=== PATIENT | female | born 1995 | race Hispanic/Latino ===

== ENCOUNTER 2018-11-14 08:50 | Emergency (ER) | payer OTHER ==
--- NOTE | 2018-11-14 10:41 | EDPHYS ---
Physician Documentation [facility] Name: Karin Martinez Age: 22 yrs Sex: Female : 1995 Arrival Date: 11/14/2018 Time: 08:55 Bed 24 Private MD: ED Physician Johnny Garcia HPI: 11/14 09:17 This 22 yrs old Female presents to ER via Ambulatory with complaints of Arm kb Pain, Hand Pain. 09:19 The patient or guardian reports pain, swelling. The complaints affect the left wrist kb diffusely. Context: The problem was sustained at work, resulted from using manager floor. Onset: The symptoms/episode began/occurred yesterday. Modifying factors: The symptoms are alleviated by nothing, the symptoms are aggravated by movement. Associated signs and symptoms: The patient has no apparent associated signs or symptoms. The patient has not experienced similar symptoms in the past. The patient has not recently seen a physician. Pt states she was using the big manager floor yesterday and has had pain to wrist since then. States "the machine is hard on your wrists when turning.". 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 - Social history:: Smoking status: Patient/guardian denies using tobacco. - Ebola Screening: : Patient negative for fever greater than or equal to 101.5 degrees Fahrenheit, and additional compatible Ebola Virus Disease symptoms Patient denies exposure to infectious person Patient denies travel to an Ebola-affected area in the 21 days before illness onset. ROS: 09:19 Constitutional: Negative for fever, chills, and weight loss, Cardiovascular: Negative kb for chest pain, palpitations, and edema, Respiratory: Negative for shortness of breath, cough, wheezing, and pleuritic chest pain, Abdomen/GI: Negative for abdominal pain, nausea, vomiting, diarrhea, and constipation, Skin: Negative for injury, rash, and discoloration, Neuro: Negative for headache, weakness, numbness, tingling, and seizure. 09:19 MS/extremity: Positive for injury or acute deformity, pain, swelling, of the left wrist. Exam: 09:19 Constitutional: This is a well developed, well nourished patient who is awake, alert, kb and in no acute distress. Head/Face: Normocephalic, atraumatic. Neck: Trachea midline, no thyromegaly or masses palpated, and no cervical lymphadenopathy. Supple, full range of motion without nuchal rigidity, or vertebral point tenderness. No Meningismus. Chest/axilla: Normal chest wall appearance and motion. Nontender with no deformity. No lesions are appreciated. Cardiovascular: Regular rate and rhythm with a normal S1 and S2. No gallops, murmurs, or rubs. Normal PMI, no JVD. No pulse deficits. Respiratory: Lungs have equal breath sounds bilaterally, clear to auscultation and percussion. No rales, rhonchi or wheezes noted. No increased work of breathing, no retractions or nasal flaring. Abdomen/GI: Soft, non-tender, with normal bowel sounds. No distension or tympany. No guarding or rebound. No evidence of tenderness throughout. Skin: Warm, dry with normal turgor. Normal color with no rashes, no lesions, and no evidence of cellulitis. MS/ Extremity: Pulses equal, no cyanosis. Neurovascular intact. Full, normal range of motion. Neuro: Awake and alert, GCS 15, oriented to person, place, time, and situation. Cranial nerves II-XII grossly intact. Motor strength 5/5 in all extremities. Sensory grossly intact. Cerebellar exam normal. Normal gait. Vital Signs: 09:04 BP 138 / 72; Pulse 82; Resp 14; Temp 97.5(TE); Pulse Ox 99% on R/A; Weight 95.25 kg; ss Height 5 ft. 6 in. (167.64 cm); Pain 6/10; 09:04 Body Mass Index 33.89 (95.25 kg, 167.64 cm) ss MDM: 09:04 Patient medically screened. kb 09:18 Data reviewed: vital signs, nurses notes. Data interpreted: Pulse oximetry: on room air kb is 99 %. Interpretation: normal. 10:38 Counseling: I had a detailed discussion with the patient and/or guardian regarding: the kb historical points, exam findings, and any diagnostic results supporting the discharge/admit diagnosis, radiology results, the need for outpatient follow up, a orthopedic surgeon, to return to the emergency department if symptoms worsen or persist or if there are any questions or concerns that arise at home. 11/14 09:04 Order name: Wrist Left (3 View) XRAY; Complete Time: 11:26 kb 11/14 10:40 Order name: Darell Wrap; Complete Time: 10:41 kb Administered Medications: 09:22 Not Given (Pt has taken ALEVE today already for same pain): Ibuprofen 800 mg PO once ss Disposition: 17:21 Co-signature as Attending Physician, Johnny Garcia MD. Disposition: 11/14/18 10:40 Discharged to Home. Impression: Other specified sprain of left wrist. - Condition is Stable. - Discharge Instructions: Wrist Pain, [id number]. - Prescriptions for Diclofenac Sodium 75 mg Oral Tablet, Delayed Release (E.C.) - take 1 tablet by ORAL route 2 times per day As needed; 30 tablet. - Medication Reconciliation Form, Thank You Letter, Antibiotic Education, Prescription Opioid Use form. - Follow up: Emergency Department; When: As needed; Reason: Worsening of condition. Follow up: Private Physician; When: 2 - 3 days; Reason: Recheck today's complaints, Continuance of care, Re-evaluation by your physician. Signatures: Dispatcher [employer] Tayler Hammer, BORA OVIEDOP-Ayesha Crawley RN RN ss Starr, Gregory, MD MD Corrections: (The following items were deleted from the chart) 10:57 10:40 11/14/2018 10:40 Discharged to Home. Impression: Other specified sprain of left ss wrist. Condition is Stable. Forms are Medication Reconciliation Form, Thank You Letter, Antibiotic Education, Prescription Opioid Use. Follow up: Emergency Department; When: As needed; Reason: Worsening of condition. Follow up: Private Physician; When: 2 - 3 days; Reason: Recheck today's complaints, Continuance of care, Re-evaluation by your physician. kb
--- NOTE | 2018-11-14 10:41 | ER ---
Nurse's Notes [facility] Name: Karin Martinez Age: 22 yrs Sex: Female : 1995 Arrival Date: 11/14/2018 Time: 08:55 Bed 24 Private MD: Diagnosis: Other specified sprain of left wrist Presentation: 11/14 09:03 Presenting complaint: Patient states: L wrist pain that began yesterday after using a heavy floor cleaning machine at work. ROM and CMS intact in all. Transition of care: patient was not received from another setting of care. Onset of symptoms was November 13, 2018. Risk Assessment: Do you want to hurt yourself or someone else? Patient reports no desire to harm self or others. Initial Sepsis Screen: Does the patient meet any 2 criteria? No. Patient's initial sepsis screen is negative. Does the patient have a suspected source of infection? No. Patient's initial sepsis screen is negative. Care prior to arrival: None. 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 - Social history:: Smoking status: Patient/guardian denies using tobacco. - Ebola Screening: : Patient negative for fever greater than or equal to 101.5 degrees Fahrenheit, and additional compatible Ebola Virus Disease symptoms Patient denies exposure to infectious person Patient denies travel to an Ebola-affected area in the 21 days before illness onset. Screenin:05 Abuse screen: Denies threats or abuse. Denies injuries from another. Nutritional ss screening: No deficits noted. Tuberculosis screening: No symptoms or risk factors identified. Never had TB. Fall Risk None identified. Assessment: 09:05 General: Appears in no apparent distress. comfortable, Behavior is calm, cooperative, ss Denies fever, feeling ill, fatigue, chills. Pain: Complains of pain in left wrist Pain currently is 6 out of 10 on a pain scale. Quality of pain is described as aching, tender, Pain began yesterday Is continuous. Neuro: Level of Consciousness is awake, alert, obeys commands, Oriented to person, place, time, situation. Cardiovascular: Capillary refill < 3 seconds is brisk in bilateral fingers. Respiratory: Airway is patent Respiratory effort is even, unlabored, Respiratory pattern is regular, symmetrical. GI: No signs and/or symptoms were reported involving the gastrointestinal system. : No signs and/or symptoms were reported regarding the genitourinary system. EENT: Nares are clear Oral mucosa is moist. Derm: Skin is intact, is healthy with good turgor, Skin is dry, Skin is pink, warm \T\ dry. normal. Musculoskeletal: Range of motion: intact in all extremities, mild swelling noted to L hand/wrist area. Vital Signs: 09:04 BP 138 / 72; Pulse 82; Resp 14; Temp 97.5(TE); Pulse Ox 99% on R/A; Weight 95.25 kg; ss Height 5 ft. 6 in. (167.64 cm); Pain 6/10; 09:04 Body Mass Index 33.89 (95.25 kg, 167.64 cm) ss ED Course: 08:55 Patient arrived in ED. as 09:00 Tayler Rocha F[facility]-C [facility]. kb 09:00 Johnny Garcia MD is Attending Physician. kb 09:04 Triage completed. ss 09:04 Arm band placed on right wrist. ss 09:05 Patient has correct armband on for positive identification. Bed in low position. Call ss light in reach. 09:22 Ayesha Marshall, RN is Primary Nurse. ss 10:04 Wrist Left (3 View) XRAY In Process Unspecified. EDMS 10:53 No provider procedures requiring assistance completed. Patient did not have IV access ss during this emergency room visit. Administered Medications: 09:22 Not Given (Pt has taken ALEVE today already for same pain): Ibuprofen 800 mg PO once ss Outcome: 10:40 Discharge ordered by . kb 10:53 Discharged to home ambulatory. ss 10:53 Condition: good 10:53 Discharge instructions given to patient, Instructed on discharge instructions, follow up and referral plans. medication usage, Demonstrated understanding of instructions, follow-up care, medications, Prescriptions given X 1. 10:57 Patient left the ED. ss Signatures: Dispatcher [employer] EDMS Tayler Rocha FNP-C FNP-Ckb Martinez, Ximena as Ayesha Marshall, RN RN ss
--- NOTE | 2018-11-14 11:22 | RAD REPORT ---
EXAM DESCRIPTION: RAD - Wrist Left 3 View - 11/14/2018 10:04 am CLINICAL HISTORY: Persistent wrist pain, no precipitating event COMPARISON: None. FINDINGS: No fracture is identified. There is no dislocation or periosteal reaction noted. No foreig n body or other soft tissue abnormality. IMPRESSION: Negative left wrist examination.
== END 2018-11-14 10:57 | disposition home or self-care (01) ==
LOC: ER 08:50
DX: S63.592A Other specified sprain of left wrist, initial encounter (principal); X58.XXXA Exposure to other specified factors, initial encounter; Y93.E5 Activity, floor mopping and cleaning; Y92.89 Other specified places as the place of occurrence of the external cause; Y99.8 Other external cause status
CPT/HCPCS: 99283